=== PATIENT | female | born 1990 | race Caucasian/White ===

== ENCOUNTER → 2023-10-04 09:55 | Outpatient (REF) | payer BC, SELFPAY | LOC: HWRAD 09:55 | PROVIDERS: ATTENDING PHYSICIAN Physician Assistant Medical | DX: R35.0 Frequency of micturition (principal); R31.29 Other microscopic hematuria | CPT/HCPCS: 76770 ==

== ENCOUNTER → 2024-04-30 16:35 | Outpatient (REF) | payer BC, SELFPAY | LOC: CLAB 16:35 | PROVIDERS: ATTENDING PHYSICIAN Surgery | DX: K60.3 Anal fistula (principal) | CPT/HCPCS: 88304 ==

== ENCOUNTER 2025-04-23 06:31 | Day surgery (SDC) | payer BC, SELFPAY ==
[2025-04-23 13:23] VITALS: BMI 21.5
[2025-04-23 13:24] VITALS: BP 127/82
[2025-04-23] MEDS: NORMOSOL-R/PLASMALYTE-A 1000 IV (13:33)
[2025-04-23 14:49] VITALS: BP 144/76
[2025-04-23 15:00] VITALS: BP 128/99
[2025-04-23 15:15] VITALS: BP 135/74
[2025-04-23] MEDS: TYLENOL 650 MG PO (15:21)
[2025-04-23 15:23] VITALS: BP 114/68
== END 2025-04-23 15:39 | disposition home or self-care (01) ==
LOC: SDS 06:31
PROVIDERS: ATTENDING PHYSICIAN Surgery
DX: K60.30 Anal fistula, unspecified (principal)
CPT/HCPCS: 46275